=== PATIENT | female | born 1970 | race Caucasian/White ===

== ENCOUNTER 2016-04-23 21:01 | Inpatient (IN) | payer OTHER ==
--- NOTE | ~2016-04-23 | PN ---
Unit #: [id number] #: [id number] Patient: IDALIA ORR [id number] [facility] [address] [place] [address] [id number] MR#: [id number] NAME: IDALIA ORR ROOM: P110 Age: 45 Sex: F Admission Date: 04/23/2016 : 1970 Attending Physician: Jasson Mccormick M.D. Admitting Physician: Jasson Mccormick M.D. Primary Care Physician: Primary Care Physician Mee GALARZA PROGRESS NOTES DATE 04/25/2016 DISCUSSION The patient requests "Vistaril for my anxiety" when seen today. She is requesting a family session with her . It is worth noting that the patient is quite groggy with her recently prescribed medications at previous doses leading again to suspicions that they may have been diverted outside the hospital. I was unsuccessful in completing the patient's KHOA report earlier today, but we will attempt once again to do so later on. Dictated by... Jasson Mccormick M.D. CB/robi TD: 04/25/2016 14:54 JOB #: [id number] GEOVANNI MASTERSON NOTES X Jasson Mccormick MD PROGRESS NOTE
--- NOTE | ~2016-04-23 | HP ---
Unit #: [id number] #: [id number] Patient: STEPHY ORR [id number] [place] [address] [id number] MR#: [id number] NAME: STEPHY ORR ROOM: P110 Age: 45 Sex: F Admission Date: 04/23/2016 : 1970 Attending Physician: Jasson Mccormick M.D. Admitting Physician: Jasson Mccormick M.D. Primary Care Physician: Primary Care Physician No HISTORY AND PHYSICAL HISTORY OF PRESENT ILLNESS Stephy is a 45 year old, admitted to [address] [place] [address] with depression and verbalizing wanting to hurt herself. She has had numerous admissions to this facility for the same. PAST MEDICAL HISTORY 1. Chronic obstructive pulmonary disease. 2. Crohn's. 3. Degenerative disc disease. a. Chronic pain. 4. High blood pressure. 5. Seizure disorder. 6. Hyperlipidemia. PAST SURGICAL HISTORY 1. Uterine ablation. 2. Appendectomy. 3. section x1. 4. Partial colectomy with colostomy, 01/2016. ALLERGIES No known drug allergies. SOCIAL HISTORY He smokes two packs per day, denies alcohol. She has a history of polysubstance abuse to include pain pills and benzodiazepines. FAMILY HISTORY Medically noncontributory. REVIEW OF SYSTEMS She does not answer any questions appropriately. She is sitting in a chair in the day room, slumped over, slurred speech, oriented x0. CURRENT MEDICATIONS 1. Buprenorphine 8 mg sublingually daily 2. Neurontin 800 mg t.i.d. 3. Ritalin 20 mg t.i.d. 4. Alprazolam 2 mg q.i.d. 5. Multivitamin 1 daily 6. Nicotine patch 14 mg daily 7. Proventil inhaler p.r.n. 8. Milk of magnesia p.r.n. Unit #: [id number] #: [id number] Patient: STEPHY ORR 9. Maalox p.r.n. 10. Tylenol p.r.n. 11. Zyprexa 20 mg q.h.s. 12. Lipitor 10 mg q.h.s. 13. Keppra 500 mg daily 14. Detox protocol PHYSICAL EXAMINATION GENERAL: Alert, thin, lethargic, oriented x0. VITAL SIGNS: Blood pressure 128/7, heart rate 70, respirations 16, and temperature 98.6. WEIGHT: 112 pounds. HEIGHT: 5 feet 1 inch. SKIN: Unable to assess. HEENT: Unable to assess. NECK: Unable to assess. HEART: Regular rate and rhythm. LUNGS: Clear. ABDOMEN: Soft. Colostomy bag noted. : Unable to assess. EXTREMITIES: Moves all extremities without focal deficits. Gait not observed. NEUROLOGICAL: Unable to assess. IMPRESSION Psychiatric admission. RECOMMENDATIONS Psychiatric, per psychiatrist. MEDICAL I see no contraindications to participating in facility's activities. MEDICAL PROGNOSIS Good. MEDICAL CONDITION Stable. Dictated by... Cathy Baca P.A.-C. for Mateo King/norris TD: 04/25/2016 05:19 JOB #: [id number] Unit #: [id number] #: [id number] Patient: STEPHY ORR HISTORY AND PHYSICAL X Cathy Baca HISTORY AND PHYSICAL
--- NOTE | ~2016-04-23 | PN ---
Unit #: [id number] #: [id number] Patient: IDALIA ORR [id number] [facility] [address] [place] [address] [id number] I MR#: [id number] NAME: IDALIA ORR ROOM: P110 Age: 45 Sex: F Admission Date: 04/23/2016 : 1970 Attending Physician: Jasson Mccormick M.D. Admitting Physician: Jasson Mccormick M.D. Primary Care Physician: Primary Care Physician Mee GALARZA PROGRESS NOTES DATE 04/26/2016 DISCUSSION The patient seems a bit brighter today. She is active within the therapeutic milieu and does not report any suicidal ideation. She asked to remain in the hospital until May 01 "when they will turn the heat and water back on in my house." I have explained to the patient that this is an unrealistic expectation of inpatient care and I have told her to expect a.m. discharge. Dictated by... Jasson Mccormick M.D. CB/natasha TD: 04/26/2016 16:04 JOB #: [id number] GEOVANNI PROGRESS NOTES X Jasson Mccormick MD PROGRESS NOTE
--- NOTE | ~2016-04-23 | PA ---
Unit #: [id number] #: [id number] Patient: IDALIA ORR [id number] [place] [address] [id number] I MR#: [id number] NAME: IDALIA ORR ROOM: P110 Age: 45 Sex: F Admission Date: 04/23/2016 : 1970 Date of Assessment: 04/24/2016 Attending Physician: Jasson Mccormick M.D. Admitting Physician: Jasson Mccormick M.D. Primary Care Physician: Primary Care Physician No PSYCHIATRIC ASSESSMENT IDENTIFYING INFORMATION The patient is a 45-year-old white female admitted to the [address] [place] [address] after presenting to this facility voicing positive suicidal ideation. CHIEF COMPLAINT None given INFORMANT Patient, alize. HISTORY OF PRESENT ILLNESS The patient is a 45-year-old white female well known to this physician for multiple previous admissions to this facility. She has not been admitted in some time last having left this facility in December of last year. The patient reports recurrence of suicidal ideation and depressed mood. She is currently followed by a local physician who has prescribed high doses of Ritalin, Xanax and Subutex for her in a manner which is typical for this physician. The patient reports that she has been increasingly depressed related to having recently having undergone colostomy secondary to increase of her Crohn disease. She reports that she spent two months in the hospital after her surgery. She states that she is currently living with her and that her children are in detention. This is a source of great distress to her. For more complete history of present illness please refer to previous dictated notes. PAST PSYCHIATRIC HISTORY Reviewed, no changes. PAST MEDICAL HISTORY Significant for the aforementioned colostomy. MEDICATIONS 1. Subutex 2. Xanax 3. Ritalin 4. Neurontin 5. Zyprexa 6. Phenergan 7. Ventolin 8. Lipitor 9. Keppra ALLERGIES Unit #: [id number] #: [id number] Patient: IDALIA ORR Pneumococcal vaccine, milk, fish. FAMILY HISTORY Noncontributory. SOCIAL HISTORY The patient is currently living with her in an apartment. She reports that all of her children have been incarcerated. She reports no abuse of psychoactive substances. MENTAL STATUS EXAM At this time reveals the patient to be a disheveled white female appearing significantly older than her stated age of 45 years. She is in no apparent physical distress at the time of examination. She is awake and alert in all spheres. Her mood is dysphoric. Her affect blunted. Speech is generally relevant and coherent. There are no gross deficits to memory or cognition noted. Intelligence is judged to be in the low average range based on fund of knowledge. The patient is generally cooperative throughout the interview. She is currently endorsing a positive suicidal ideation. She denies homicidal ideation. She denies any psychotic symptoms. Her judgement and insight appear to be reasonably intact. ASSETS AND LIABILITIES ASSETS: To be assessed. LIABILITIES: Lack of resources. DIAGNOSTIC IMPRESSION 1. Dysthymic disorder. 2. Borderline personality disorder. 3. Opioid use disorder. 4. Attention deficit-hyperactivity disorder by history. 5. Restless leg syndrome. 6. Crohn's disease. 7. Status post colostomy. PSYCHIATRIC PLAN/TREATMENT GOALS The patient will remain hospitalized for safety and stabilization. I will reluctantly continue Subutex, Xanax, Ritalin and Neurontin if they are in fact verified as having been prescribed but will play no part in continuing these medications once the patient is discharged. In the meantime we will consider initiation of antidepressant medication given the patient's complaints of depressed mood however generally her symptoms seem to be more behavioral and situational in nature. ESTIMATED LENGTH OF STAY Five to seven days. Dictated by... Jasson Mccormick M.D. KIA/reynold TD: 04/25/2016 00:51 JOB #: [id number] Unit #: [id number] #: [id number] Patient: IDALIA ORR MARIUSZ PSYCHIATRIC ASSESSMENT X Jasson Mccormick MD PSYCHIATRIC ASSESSMENT
--- NOTE | ~2016-04-23 | DS ---
Unit #: [id number] #: [id number] Patient: IDALIA ORR [id number] [facility] [address] [place] [address] [id number] MR#: [id number] NAME: IDALIA ORR ROOM: P110 Age: 45 Sex: F Admission Date: 04/23/2016 : 1970 Discharge Date: 04/27/2016 Attending Physician: Jasson Mccormick M.D. Primary Care Physician: Primary Care Physician No DISCHARGE SUMMARY REASON FOR ADMISSION The patient is a 45-year-old white female, admitted after she had presented to this facility voicing positive suicidal ideation. HOSPITAL COURSE The patient was admitted to the [address] [place] [address] unit and placed on suicide precautions. Reluctantly, the patient was continued on Subutex, Xanax, Ritalin, and Neurontin as prescribed by her outpatient provider. The patient's stay in the hospital was otherwise an uneventful one. She requested discharge on 04/27/2016 and at that time, it was so ordered. It is worth noting that when being given Xanax at a dose of 2 mg q.i.d. The patient was grossly sedated leading this physician once again to believe that the patient or the patient's family probably diverting prescribed medications. FINAL DIAGNOSES Schizoaffective disorder by history; opioid use disorder; Crohn disease, status post colostomy. DISPOSITION This physician will provide no prescriptions whatsoever to the patient given concerns about an pentecostalism medication regimen. Whatever the case, she will continue on Keppra 500 mg b.i.d. for seizure disorder, Lipitor 10 mg at bedtime for dyslipidemia, Proventil HFA 2 puffs q.4 hours for COPD, olanzapine 20 mg at bedtime for psychosis, Xanax 2 mg q.i.d. for mood stabilization, Ritalin 20 mg t.i.d. for reason unknown, Neurontin 800 mg t.i.d. reason unknown, and Suboxone 16 mg once daily for opioid dependence. DISCHARGE INSTRUCTIONS No dietary or physical restrictions were placed upon the patient at the time of discharge. She will follow under the care of her previous provider Dr. John Mccoy. Her prognosis remains guarded and again this physician expresses great concerns regarding this patient being on these prescribed medications, briefly given the patient's family's history of diverting her prescribed controlled substances. Dictated by... Jasson Mccormick M.D. CB/nataliia TD: 04/28/2016 04:48 Unit #: [id number] #: [id number] Patient: IDALIA ORR JOB #: [id number] DISCHARGE SUMMARY X Jasson Mccormick MD X DISCHARGE SUMMARY
[~2016-04-23 21:01] MED LIST: ALPRAZOLAM PO; AMBIEN10 MG PO; ATIVAN PO; BACTRIM DS TABL1 TA1 PO; BENTYL20 MG PO; CATAPRES0.1 MG PO; CIPRO PO; CLINDAMYCIN HC300 MG PO; DEPAKOTE; DEPAKOTE ER250 MG DOB; DEPAKOTE PO; DICLOFENAC PO; DIFLUCAN PO; DIVALPROEX SOD500 MG PO; DOXEPIN HCL150 MG PO; DOXEPIN PO; GEODAN; HYDROCHLOROTHIA25 MG PO; IBUPROFEN800 MG PO; KCL PO; KEPPRA1000 MG PO; KEPPRA500 M1; KEPPRA500 M2 PO; KLONOPIN; KLONOPIN1 MG PO; LIDOCAINE VISCOU1 ML PO; LOMOTIL TABLET1 TAB PO; LORTAB 5/500 TA1 TA1 PO; LORTAB 5/500 TA1 TA2 PO; LORTAB 7.5-5001 TAB PO; MOTRIN600 M2 PO; NEURONTIN; NEURONTIN PO; NEURONTIN600 MG DOB; NEURONTIN600 MG PO; NEURONTIN800 MG PO; NEXIUM PO; PEN-VEE K PO; PHENERGAN PO; PHENERGAN SUPP25 MG PR; PHENERGAN25 MG PO; PREDNISONE; PRILOSEC20 MG PO; PROTONIX PO; REMERON; RISPERDAL0.5 M2 PO; RITALIN PO; SEROQUEL; SEROQUEL PO; SEROQUEL50 M1 PO; TRAMADOL HCL50 M2 PO; TRAZODONE HCL100 MG PO; ULTRAM PO; VICODIN PO; VIMPAT100 MG PO; VOLTAREN75 MG PO; XANAX1 MG PO; XANAX2 MG PO; ZOFRAN PO; ZYPREXA
[2016-04-24 09:29] LABS: BASOPHIL# 0.1 X10e3 (0-0.3); BASOPHIL% 0.8 % (0-2.5); EOSINOPHIL# 0.5 X10e3 (0-0.7); EOSINOPHIL% 5.8 % (0.0-7.0); HEMATOCRIT 35.3 % (35.0-45.0); HEMOGLOBIN 11.6 gm/dL (12.0-16.0); LYMPHOCYTE# 2.6 X10e3 (1.0-3.5); MEAN CELL VOLUME 89.3 FL (83-96); MEAN CORPUSCULAR HEMOGLOBIN 29.2 PG (28-34); MEAN CORPUSCULAR HGB CONC 32.7 g/dL (30-36); MEAN PLATELET VOLUME 7.5 FL (6.5-11.5); MONOCYTE# 0.9 X10e3 (0-1.0); MONOCYTE% 11.4 % (3.0-12.0); NEUTROPHIL# 3.9 X10e3 (1.5-7.1); PLATELET COUNT 524 X10e3 (140-420); RED BLOOD COUNT 3.96 X10e (3.90-5.30); RED CELL DISTRIBUTION WIDTH 13.8 % (11.0-15.5); WHITE BLOOD COUNT 7.9 X10e3 (4.0-10.5)
[2016-04-24 09:39] LABS: DIFF IND NO
[2016-04-24 09:55] LABS: THYROID STIMULATING HORMONE 0.31 uIU/ml (0.34-5.60)
[2016-04-24 10:02] LABS: FREE THYROXIN (T4) 0.74 ng/dL (0.58-1.64)
[2016-04-24 10:05] LABS: ALBUMIN SERUM 3.9 g/dL (3.5-5.0); ALKALINE PHOSPHATASE 77 U/L (32-92); ALT (SGPT) 257 U/L (10-40); AST (SGOT) 352 U/L (10-42); BILIRUBIN,TOTAL 0.5 mg/dL (0.2-2.0); BLOOD UREA NITROGEN 5 mg/dL (9-23); BUN/CREATININE RATIO 7.14; CALCIUM SERUM 9.9 mg/dL (8.4-10.2); CARBON DIOXIDE 24 mmol/L (22-31); CHLORIDE 103 mmol/L (100-111); CREATININE SERUM 0.7 mg/dL (0.6-1.4); GLOM FILT RATE Estimated ABOVE60 mL/min (>60); GLUCOSE FASTING 89 mg/dL (70-110); POTASSIUM 4.9 mmol/L (3.5-5.1); PROTEIN TOTAL SERUM 7.2 g/dL (6.0-8.3); SODIUM 138 mmol/L (135-145)
== END 2016-04-27 18:28 | disposition home or self-care (01) | DRG 881 ==
LOC: P1S 21:01
PROVIDERS: Specialist
DX: F34.1 Dysthymic disorder (principal); F11.20 Opioid dependence, uncomplicated; K50.90 Crohn's disease, unspecified, without complications; G40.909 Epilepsy, unspecified, not intractable, without status epilepticus; F25.0 Schizoaffective disorder, bipolar type; I10 Essential (primary) hypertension; F60.3 Borderline personality disorder; F90.9 Attention-deficit hyperactivity disorder, unspecified type; G25.81 Restless legs syndrome; Z93.3 Colostomy status; J44.9 Chronic obstructive pulmonary disease, unspecified; E78.5 Hyperlipidemia, unspecified; F17.200 Nicotine dependence, unspecified, uncomplicated
CPT/HCPCS: 80053; 84439; 84443; 85025; 86592

== ENCOUNTER 2016-05-10 16:04 | Inpatient (IN) | payer OTHER ==
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
--- NOTE | ~2016-05-10 | PN ---
Unit #: [id number] #: [id number] Patient: IDALIA ORR [id number] [facility] [address] [place] [address] [id number] MR#: [id number] NAME: IDALIA ORR ROOM: 12 Age: 45 Sex: F Admission Date: 05/10/2016 : 1970 Attending Physician: Jasson Mccormick M.D. Admitting Physician: Jasson Mcocrmick M.D. Primary Care Physician: Primary Care Physician Mee MASTERSON NOTES DATE 05/12/2016 DISCUSSION The patient reports no suicidal or homicidal ideation when seen today. Interestingly, she exhibits absolutely no signs or symptoms of withdrawal from benzodiazepines or opiates but demands that these medications be re-initiated. I have gently confronted her with a, the fact that she is having no withdrawal symptoms and b, the fact that her drug screen was positive only for benzodiazepines and have informed her that I do not plan to re-initiate her Subutex, Ritalin or Xanax. The patient at this point demanded discharge from the hospital. I have told the patient today that if she sustains progress she may be discharged as early as tomorrow. Dictated by... Jasson Mccormick M.D. CB/natasha TD: 05/12/2016 15:26 JOB #: [id number] GEOVANNI MASTERSON NOTES X Jasson Mccormick MD PROGRESS NOTE
--- NOTE | ~2016-05-10 | HP ---
Unit #: [id number] #: [id number] Patient: IDALIA ORR [id number] [facility] [address] [place] [address] [id number] MR#: [id number] NAME: IDALIA ORR ROOM: 12 Age: 45 Sex: F Admission Date: 05/10/2016 : 1970 Attending Physician: Jasson Mccormick M.D. Admitting Physician: Jasson Mccormick M.D. Primary Care Physician: Primary Care Physician No HISTORY AND PHYSICAL HISTORY OF PRESENT ILLNESS The patient is a 45 year old admitted to [address] [place] [address] with depression verbalizing wanting to hurt herself. She has had numerous admissions to this facility for the same. The patient was seen and H and P dated 04/24/2016 was reviewed. This is current. No changes. Please see H and P dated 04/24/2016. Dictated by... Cathy Baca P.A.-C. for Mateo King/robi TD: 05/12/2016 11:41 JOB #: [id number] HISTORY AND PHYSICAL X Cathy Baca HISTORY AND PHYSICAL
--- NOTE | ~2016-05-10 | DS ---
Unit #: [id number] #: [id number] Patient: IDALIA ORR [id number] [facility] [address] [place] [address] [id number] MR#: [id number] NAME: IDALIA ORR ROOM: [facility] Age: 45 Sex: F Admission Date: 05/10/2016 : 1970 Discharge Date: 05/13/2016 Attending Physician: Jasson Mccormick M.D. Primary Care Physician: Primary Care Physician No DISCHARGE SUMMARY REASON FOR ADMISSION The patient is a 45-year-old white female, admitted to the [address] [place] [address] unit after she had claimed to be suicidal. HOSPITAL COURSE The patient was admitted to the [address] [place] [address] and placed on suicide precautions as the patient had been informed in the emergency room her previously prescribed medications including Xanax, Ritalin, and Suboxone were all discontinued. The patient exhibited absolutely no signs or symptoms of withdrawal from these medications during her stay in the hospital, certainly indicating that these medications are probably being diverted if in fact they are being prescribed for her. Whatever the case, the patient denied suicidal ideation and requested discharge on 05/12/2016, stating that she needed to "help her move." She was observed for another 24 hours, during which time she exhibited absolutely no signs or symptoms of withdrawal from opioids or benzodiazepines. On 05/13/2016 as per her request, discharge was ordered. FINAL DIAGNOSES Schizoaffective disorder, seizure disorder, Crohn disease, chronic obstructive pulmonary disease. DISPOSITION ON DISCHARGE This physician will provide a prescription only for prednisone with tapering dose over the next 7-day period 10 mg for exacerbation of COPD. The patient will continue Keppra 500 mg b.i.d. for seizure disorder, Lipitor 10 mg at bedtime for dyslipidemia, Proventil HFA 2 puffs q.4 hours p.r.n. shortness of air, olanzapine 20 mg at bedtime for mood stabilization, and Deltasone as noted previously, Tessalon Perles 200 mg q.8 hours p.r.n. cough. DISCHARGE INSTRUCTIONS No dietary or physical restrictions were placed upon the patient at the time of discharge. FOLLOWUP Followup will take place through the auspices of community mental health resources. PROGNOSIS The patient's prognosis remains somewhat guarded given her lack of resources and chaotic family situation. Unit #: [id number] #: [id number] Patient: IDALIA ROR Dictated by... Jasson Mccormick M.D. CB/nataliia TD: 05/14/2016 02:16 JOB #: [id number] DISCHARGE SUMMARY X Jasson Mccormick MD X DISCHARGE SUMMARY
== END 2016-05-13 14:00 | disposition home or self-care (01) | DRG 885 ==
LOC: P1S 16:04
PROC: HZ2ZZZZ Detoxification Services for Substance Abuse Treatment (ICD-10-PCS; principal; 2016-05-10)
DX: F25.9 Schizoaffective disorder, unspecified (principal); K50.90 Crohn's disease, unspecified, without complications; F60.3 Borderline personality disorder; F11.10 Opioid abuse, uncomplicated; F13.10 Sedative, hypnotic or anxiolytic abuse, uncomplicated; G40.909 Epilepsy, unspecified, not intractable, without status epilepticus; J44.9 Chronic obstructive pulmonary disease, unspecified

== ENCOUNTER 2016-07-01 04:17 | Emergency (ER) | payer OTHER | END 2016-07-01 04:21 | disposition home or self-care (01) | LOC: SED 04:17 | DX: S39.011A Strain of muscle, fascia and tendon of abdomen, initial encounter (principal); J44.9 Chronic obstructive pulmonary disease, unspecified; F31.9 Bipolar disorder, unspecified; Z86.19 Personal history of other infectious and parasitic diseases; F17.200 Nicotine dependence, unspecified, uncomplicated; X58.XXXA Exposure to other specified factors, initial encounter | CPT/HCPCS: 99283 ==

== ENCOUNTER 2016-07-05 22:00 | Inpatient (IN) | payer OTHER ==
--- NOTE | ~2016-07-05 | PN ---
Unit #: [id number] #: [id number] Patient: IDALIA ORR [id number] [facility] [address] [place] [address] [id number] MR#: [id number] NAME: IDALIA ORR ROOM: P205 Age: 45 Sex: F Admission Date: 07/06/2016 : 1970 Attending Physician: Jasson Mccormick M.D. Admitting Physician: Jasson Mccormick M.D. Primary Care Physician: Primary Care Physician Mee GALARZA PROGRESS NOTES DATE 07/07/2016 DISCUSSION The patient is abed resting comfortably. Staff reports no management issues but reports that the patient has remained seclusive to room throughout much of her stay in the hospital. Dictated by... Jasson Mccormick M.D. CB/natasha TD: 07/07/2016 16:31 JOB #: [id number] GEOVANNI PROGRESS NOTES Page 1 of 1 X Jasson Mccormick MD X PROGRESS NOTE
--- NOTE | ~2016-07-05 | HP ---
Unit #: [id number] #: [id number] Patient: STEPHY ORR [id number] [place] [address] [id number] I MR#: [id number] NAME: STEPHY ORR ROOM: P205 Age: 45 Sex: F Admission Date: 07/06/2016 : 1970 Attending Physician: Jasson Mccormick M.D. Admitting Physician: Jasson Mccormick M.D. Primary Care Physician: Primary Care Physician No HISTORY AND PHYSICAL HISTORY OF PRESENT ILLNESS Stephy is a 45-year-old female admitted on 07/06/[address] [place] [address] for depression and suicidal ideation. PAST MEDICAL HISTORY History of Crohn's disease, COPD, degenerative disk disease, hypertension, hyperlipidemia, recurrent colostomy. PAST SURGICAL HISTORY Colostomy, section x4, appendectomy, and uterine ablation. SOCIAL HISTORY Smokes 2 packs of cigarettes daily. Denies alcohol use. FAMILY HISTORY History of substance abuse, specifically opiates and benzos. She is currently homeless and on disability. FAMILY HISTORY Noncontributory. REVIEW OF SYSTEMS CONSTITUTIONAL: No fever or chills. HEENT: Denies any sore throat, ear pain or runny nose. CARDIOVASCULAR: Denies chest pain, irregular heart rhythm or palpitations. CHEST: Denies shortness of breath or cough. No hemoptysis. GASTROINTESTINAL: Denies nausea, vomiting, diarrhea or chronic constipation. ENDOCRINE: Denies history of increased thirst or urination. No recent significant weight loss or gain. GENITOURINARY: Denies dysuria, frequency, or hematuria. SKIN: Denies any rashes. HEMATOLOGIC: Denies history of increased bleeding or bruising. MUSCULOSKELETAL: Denies any hot, swollen joints. No generalized muscle pain. NEUROLOGIC: Denies problems with vision or speech. No frequent, severe headaches. No numbness, tingling or weakness in any extremities. Denies loss of bladder or bowel control. CURRENT MEDICATIONS Please see extensive medication reconciliation form in chart. ALLERGIES Unit #: [id number] #: [id number] Patient: STEPHY ORR To iodine and pneumococcal vaccine. PHYSICAL EXAMINATION GENERAL: Alert, oriented, no acute distress. VITAL SIGNS: Blood pressure 101/68, heart rate 89, respirations 17, and temperature 98.9. HEIGHT: 5 feet 1. WEIGHT: 108 pounds. SKIN: Warm, dry. No rashes or lesions, track orozco, cuts, etc. HEENT: Normocephalic. TMs not viewed. Oronasal passages clear. Conjunctivae clear. PERRLA. EOM is intact. NECK: No lymphadenopathy or thyromegaly. HEART: Regular rate and rhythm. No murmur, gallop, or rub. LUNGS: Clear to auscultation bilaterally. ABDOMEN: Soft, nontender without palpable masses or hepatosplenomegaly. : Not assessed. EXTREMITIES: No evidence of cyanosis, clubbing, or edema. Moves all extremities independently without obvious deficit. NEUROLOGICAL: Grossly within normal limits. Cranial Nerves: II: Visual barbosa are intact. III, IV AND : Extraocular movements are intact. Pupils are equal, round and reactive to light. V: Facial sensation is grossly normal. VII: Facial movements and expression are normal. VIII: Auditory acuity grossly intact. IX, X: Uvula is midline. Phonation is normal. XI: Patient shrugs shoulders and turns head normally. XII: Tongue protrudes in the midline. Sensory and Motor Function: Sensory and motor sensation is grossly normal. Motor: moves all extremities well. Coordination: Gait is normal. Deep Tendon Reflexes: Intact. IMPRESSION 1. Psychiatric admission. 2. Chronic obstructive pulmonary disease. 3. Crohn's disease. 4. Degenerative disk disease. 5. Hyperlipidemia. 6. Hypertension. 7. Seizure disorder. RECOMMENDATIONS PSYCHIATRIC: Per psychiatrist. MEDICAL: No contraindication to participate in this facility's activities. MEDICAL PROGNOSIS Good. MEDICAL CONDITION Stable. Dictated by... Nevin Akers TD: 07/07/2016 08:05 Unit #: [id number] #: [id number] Patient: STEPHY ORR JOB #: [id number] HISTORY AND PHYSICAL Page 1 of 1 X URSZULA SCHREIBER APRN X HISTORY AND PHYSICAL
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
[2016-07-07 13:46] LABS: BASOPHIL% 0.5 % (0-2.5); EOSINOPHIL% 0.3 % (0.0-7.0); HEMATOCRIT 35.6 % (35.0-45.0); HEMOGLOBIN 11.6 gm/dL (12.0-16.0); LYMPHOCYTE# 1.2 X10e3 (1.0-3.5); LYMPHOCYTE% 14.4 % (17.0-45.0); MEAN CELL VOLUME 88.2 FL (83-96); MEAN CORPUSCULAR HEMOGLOBIN 28.7 PG (28-34); MEAN CORPUSCULAR HGB CONC 32.6 g/dL (30-36); MEAN PLATELET VOLUME 8.7 FL (6.5-11.5); MONOCYTE# 0.3 X10e3 (0-1.0); MONOCYTE% 3.8 % (3.0-12.0); NEUTROPHIL# 6.7 X10e3 (1.5-7.1); PLATELET COUNT 311 X10e3 (140-420); RED BLOOD COUNT 4.04 X10e (3.90-5.30); RED CELL DISTRIBUTION WIDTH 13.6 % (11.0-15.5); WHITE BLOOD COUNT 8.3 X10e3 (4.0-10.5)
[2016-07-07 13:47] LABS: DIFF IND NO
[2016-07-07 14:15] LABS: ALBUMIN SERUM 3.7 g/dL (3.5-5.0); BILIRUBIN,TOTAL 0.7 mg/dL (0.2-2.0); BUN/CREATININE RATIO 18.57; CALCIUM SERUM 9.1 mg/dL (8.4-10.2); CREATININE SERUM 0.7 mg/dL (0.6-1.4); GLOM FILT RATE Estimated 103.2 mL/min (>60); POTASSIUM 3.7 mmol/L (3.5-5.1); PROTEIN TOTAL SERUM 6.3 g/dL (6.0-8.3)
== END 2016-07-08 15:36 | disposition home or self-care (01) | DRG 885 ==
LOC: P2S 07-06 00:53
PROVIDERS: Specialist
DX: F25.9 Schizoaffective disorder, unspecified (principal); K50.90 Crohn's disease, unspecified, without complications; R45.851 Suicidal ideations; Z93.3 Colostomy status; G40.909 Epilepsy, unspecified, not intractable, without status epilepticus; J44.9 Chronic obstructive pulmonary disease, unspecified; I10 Essential (primary) hypertension; E78.5 Hyperlipidemia, unspecified; F17.210 Nicotine dependence, cigarettes, uncomplicated; Z88.7 Allergy status to serum and vaccine
CPT/HCPCS: 80053; 85025

== ENCOUNTER 2016-09-13 18:11 | Inpatient (IN) | payer OTHER ==
[~2016-09-13] VITALS: Ht 152.4 cm; Wt 56.7 kg
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
--- NOTE | ~2016-09-13 | PN ---
Unit #: [id number] #: [id number] Patient: IDALIA ORR [id number] [facility] [address] [place] [address] [id number] I MR#: [id number] NAME: IDALIA ORR ROOM: [facility] Age: 45 Sex: F Admission Date: 09/13/2016 : 1970 Attending Physician: Jasson Mccormick M.D. Admitting Physician: Jasson Mccormick M.D. Primary Care Physician: Primary Care Physician Mee GALARZA PROGRESS NOTES DATE 09/16/2016 DISCUSSION The patient continues to exhibit absolutely no signs or symptoms of benzodiazepine or opioid withdrawal. She continues to deny suicidal ideation and is hoping to coordinate her discharge with that of her who is currently on the 1 [facility] unit. Dictated by... Jasson Mccormick M.D. CB/reynold TD: 09/17/2016 00:26 JOB #: [id number] [facility] PROGRESS NOTES Page 1 of X Jasson Mccormick MD PROGRESS NOTE
--- NOTE | ~2016-09-13 | A ---
[facility] Nutrition Therapy DATE: 09/14/16 Patient: IDALIA ORR Physician: MILDRED Address: NO PERMANENT ADDRESS Room/Bed: [address] [facility], [facility], Zip: [place] [address] Admit Date: 09/13/16 Date of : [birth year] Height: 5 0 Weight: 124 56.699 NUTRITIONAL ASSESSMENT: REASON: 2 points malnutrition risk score re: unintentional weight loss + chewing/swallowing difficulties Admitting dx: 45 y/o female admitted with depression and SI PMH: Crohn's disease -> colon cancer (dx date?), COPD, HTN, HLD, DDD, seizures, recurrent colostomy, smoker, substance abuse (obtained from 07/06/16 H&P) *No updated H&P available at this time Anthropometrics: Ht: 60", Wt: 125 lbs, BMI: 24 (normal) ?weight accuracy, pt weighed 108 lbs at last admission on 07/06/16 Past weight range: 108-145 lbs Labs: None available Meds: Keppra, MVI, thiamine, folic acid, milk of mg, mag-al, loperamide, zofran prn, pshych meds noted I/O & Bowel function: No colostomy currently in place, has hx Crohn's and now has colon cancer Assessment: Chart reviewed, events noted. See admitting dx and PMH as stated above. Patient recently diagnosed with colon cancer and states she wants to , unable to cope with pt's diagnosis. She is currently homeless and on disability. She is on a regular diet. Question current weight accuracy (see above), she reports poor appetite with 20 lb weight loss in "months" upon admission, however past weights do not reflect this loss. No evidence of chewing/swallowing difficulty. Pt just admitted yesterday- will follow to determine adequacy of PO intake and will ask MD to order Ensure shakes BID. Dx: Unintentional weight loss r/t depression, cancer AEB pt reports 20 lb weight los in months, 2 points malnutrition risk score. Intervention: Ensure BID, snacks prn, psych tx Monitoring, Evaluation and Goals: 1. PO intake > 50% of meals/supps. 2. Maintain current weight status. Monitor: Per protocol, criteria to determine if above goals met [facility] Nutrition Therapy DATE: 09/14/16 Patient: IDALIA VEE KIRBY Physician: MILDRED Address: NO PERMANENT ADDRESS Room/Bed: P263-[address] [facility], [facility], Zip: [place] [address] Admit Date: 09/13/16 Date of : [birth year] Height: 5 0 Weight: 124 56.699 Recommendations: 1. Please obtain accurate weight. 2. Continue regular diet + prn snacks. RD will prompt MD to order Ensure BID and will notify [facility] staff to send to provide extra kcals/protein due to poor appetite and reported weight loss. 3. Continue vitamins. RD will follow Mild-moderate nutrition risk Respectfully, Deanna Lutz RD, LD [facility] cc: client file
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
--- NOTE | ~2016-09-13 | HP ---
Unit #: [id number] #: [id number] Patient: STEPHY ORR [id number] [place] [address] [id number] MR#: [id number] NAME: STEPHY ORR ROOM: P263 Age: 45 Sex: F Admission Date: 09/13/2016 : 1970 Attending Physician: Jasson Mccormick M.D. Admitting Physician: Jasson Mccormick M.D. Primary Care Physician: Primary Care Physician No HISTORY AND PHYSICAL HISTORY OF PRESENT ILLNESS Stephy is a 45-year-old female admitted on 09/13/2016 to [facility] for depression and suicidal ideation. PAST MEDICAL HISTORY 1. Hypertension. 2. Hyperlipidemia. 3. Crohn's disease. 4. COPD. 5. Degenerative disc disease. 6. Multiple colostomies. 7. Recently she also had a biopsy that was concerning for colon cancer. Those results are pending. 8. Seizure disorder. PAST SURGICAL HISTORY 1. Multiple colostomies. Recently she had a reversal on 07/25. 2. Colon biopsy. 3. Uterine ablation. 4. section x4. 5. Appendectomy. ALLERGIES Iodine and pneumovax. SOCIAL HISTORY Smokes 2 packs of cigarettes daily. Denies alcohol or illegal drug use. She is currently and homeless. FAMILY HISTORY Noncontributory. REVIEW OF SYSTEMS CONSTITUTIONAL: No fever or chills. HEENT: Denies any sore throat, ear pain or runny nose. CARDIOVASCULAR: Denies chest pain, irregular heart rhythm or palpitations. CHEST: Denies shortness of breath or cough. No hemoptysis. GASTROINTESTINAL: Denies nausea, vomiting, diarrhea or chronic constipation. ENDOCRINE: Denies history of increased thirst or urination. No recent significant weight loss or gain. GENITOURINARY: Denies dysuria, frequency, or hematuria. SKIN: Denies any rashes. Unit #: [id number] #: [id number] Patient: STEPHY ORR HEMATOLOGIC: Denies history of increased bleeding or bruising. MUSCULOSKELETAL: Denies any hot, swollen joints. No generalized muscle pain. NEUROLOGIC: Denies problems with vision or speech. No frequent, severe headaches. No numbness, tingling or weakness in any extremities. Denies loss of bladder or bowel control. CURRENT MEDICATIONS 1. Amoxicillin. 2. Neurontin. 3. Keppra. PHYSICAL EXAMINATION GENERAL: Alert, oriented, in no acute distress. VITAL SIGNS: Blood pressure 96.60, heart rate 82, temperature 97.8. HEIGHT: 5 feet 0. WEIGHT: 110 pounds. SKIN: Warm and dry without rash or lesion. HEENT: Normocephalic. TMs not viewed. Oral and nasal passages clear. Conjunctivae clear. PERRLA. EOMs intact. NECK: Supple without lymphadenopathy or thyromegaly. HEART: Regular rate and rhythm without murmur. LUNGS: Clear. ABDOMEN: Soft, nontender, without masses or hepatosplenomegaly. : Not done. EXTREMITIES: No evidence of cyanosis, clubbing or edema. Moves all without focal deficit. NEUROLOGICAL: Grossly within normal limits. Cranial Nerves: II: Visual barbosa are intact. III, IV AND : Extraocular movements are intact. Pupils are equal, round and reactive to light. V: Facial sensation is grossly normal. VII: Facial movements and expression are normal. VIII: Auditory acuity grossly intact. IX, X: Uvula is midline. Phonation is normal. XI: Patient shrugs shoulders and turns head normally. XII: Tongue protrudes in the midline. Sensory and Motor Function: Sensory and motor sensation is grossly normal. Motor: moves all extremities well. Coordination: Gait is normal. Deep Tendon Reflexes: Intact. IMPRESSION Psychiatric admission. RECOMMENDATIONS PSYCHIATRIC: Per psychiatrist. MEDICAL: No contraindication to participate in facility's activities. MEDICAL PROGNOSIS Good. MEDICAL CONDITION Stable. Dictated by... Unit #: [id number] #: [id number] Patient: KIRBYSHERWINSTEPHYNevin Huang/natasha TD: 09/14/2016 20:04 JOB #: [id number] HISTORY AND PHYSICAL Page 1 of 1 X URSZULA SCHREIBER APRN X HISTORY AND PHYSICAL
[2016-09-14 09:38] LABS: BASOPHIL% 0.5 % (0-2.5); EOSINOPHIL# 0.3 X10e3 (0-0.7); EOSINOPHIL% 3.8 % (0.0-7.0); LYMPHOCYTE# 3.3 X10e3 (1.0-3.5); LYMPHOCYTE% 36.5 % (17.0-45.0); MEAN CELL VOLUME 85.9 FL (83-96); MEAN CORPUSCULAR HEMOGLOBIN 27.8 PG (28-34); MEAN CORPUSCULAR HGB CONC 32.4 g/dL (30-36); MEAN PLATELET VOLUME 7.5 FL (6.5-11.5); MONOCYTE# 0.7 X10e3 (0-1.0); MONOCYTE% 7.9 % (3.0-12.0); NEUTROPHIL# 4.7 X10e3 (1.5-7.1); NEUTROPHIL% 51.3 % (40-75); PLATELET COUNT 860 X10e3 (140-420); RED BLOOD COUNT 3.96 X10e (3.90-5.30); RED CELL DISTRIBUTION WIDTH 15.9 % (11.0-15.5); WHITE BLOOD COUNT 9.2 X10e3 (4.0-10.5)
[2016-09-14 09:50] LABS: DIFF IND NO
[2016-09-14 10:39] LABS: ALBUMIN SERUM 3.3 g/dL (3.5-5.0); BILIRUBIN,TOTAL 0.2 mg/dL (0.2-2.0); CALCIUM SERUM 9.3 mg/dL (8.4-10.2); CREATININE SERUM 1.1 mg/dL (0.6-1.4); GLOM FILT RATE Estimated 59.8 mL/min (>60); PROTEIN TOTAL SERUM 6.5 g/dL (6.0-8.3)
[2016-09-14 10:46] LABS: POTASSIUM 5.5 mmol/L (3.5-5.1)
[2016-09-15 11:33] LABS: URINE APPEARANCE TURBID; URINE BILIRUBIN NEG (NEG); URINE BLOOD TRACE (NEG); URINE COLOR YELLOW; URINE GLUCOSE NEG (NEG); URINE KETONE NEG (NEG); URINE LEUKOCYTE ESTERASE NEG (NEG); URINE NITRATE NEG (NEG); URINE PROTEIN NEG (NEG); URINE SPECIFIC GRAVITY 1.016 (1.003-1.035); URINE UROBILINOGEN 0.2 MG/DL (NEG)
[2016-09-15 11:40] LABS: URINE BACTERIA AUWI NEG (NEGATIVE); URINE SQUAMOUS EPITHELIAL CELL FEW /[HPF]
[2016-09-15 11:53] LABS: URINE GRANULAR CAST 0-2 /[HPF]; URINE MUCUS PRESENT
[2016-09-15 11:59] LABS: AMPHETAMINE NEG (NEG); BARBITURATES NEG (NEG); BENZODIAZEPINES POS (NEG); COCAINE NEG (NEG); MARIJUANA NEG (NEG); OPIATES NEG (NEG); TRICYCLIC ANTIDEPRESSANTS NEG (NEG); U METHADONE NEG (NEG)
[2016-09-15 13:49] LABS: BUN/CREATININE RATIO 13.33; CALCIUM SERUM 10.1 mg/dL (8.4-10.2); CREATININE SERUM 0.9 mg/dL (0.6-1.4); GLOM FILT RATE Estimated 76.2 mL/min (>60)
[2016-09-15 13:58] LABS: POTASSIUM 5.6 mmol/L (3.5-5.1)
[2016-09-16 15:26] LABS: BUN/CREATININE RATIO 17.5; CREATININE SERUM 0.8 mg/dL (0.6-1.4); GLOM FILT RATE Estimated 87.9 mL/min (>60)
[2016-09-16 15:30] LABS: POTASSIUM 6.3 mmol/L (3.5-5.1)
== END 2016-09-17 13:45 | disposition home or self-care (01) | DRG 885 ==
LOC: P2L 19:48
PROVIDERS: Specialist
DX: F25.9 Schizoaffective disorder, unspecified (principal); F11.20 Opioid dependence, uncomplicated; R45.851 Suicidal ideations; K50.90 Crohn's disease, unspecified, without complications; G40.909 Epilepsy, unspecified, not intractable, without status epilepticus; I10 Essential (primary) hypertension; E78.5 Hyperlipidemia, unspecified; J44.9 Chronic obstructive pulmonary disease, unspecified; F17.210 Nicotine dependence, cigarettes, uncomplicated
CPT/HCPCS: 80048; 80053; 80307; 81003; 84703; 85025; 86592

== ENCOUNTER 2016-09-23 13:08 | Emergency (ER) | payer OTHER ==
[2016-09-23] MEDS ORDERED: NEURONTIN800 MG PO (13:25)
[2016-09-23] MEDS ORDERED: ALPRAZOLAM PO (13:25)
[2016-09-23] MEDS ORDERED: SUBOXONE 12 MG1 EACH (13:25)
== END 2016-09-23 14:10 | disposition home or self-care (01) ==
LOC: SED 13:08
DX: F41.9 Anxiety disorder, unspecified (principal); G24.9 Dystonia, unspecified; F31.9 Bipolar disorder, unspecified; Z90.710 Acquired absence of both cervix and uterus; Z90.49 Acquired absence of other specified parts of digestive tract; F17.210 Nicotine dependence, cigarettes, uncomplicated; Z88.7 Allergy status to serum and vaccine; Z91.013 Allergy to seafood; Z79.899 Other long term (current) drug therapy
CPT/HCPCS: 96372; 99283; J1200

== ENCOUNTER 2016-09-29 17:35 | Emergency (ER) | payer OTHER ==
--- NOTE | ~2016-09-29 | CR132 ---
[facility] A Service of [facility] & [facility] RADIOLOGY TEXT RESULTS PATIENT: IDALIA ORR LOCATION: SED : [birth year] UNIT #: [id number] AGE: [address]: JB VARGHESE SEX: F ORDER DR: [id number] [address] [address] [id number] MR#: [id number] Acc #: [id number] NAME: IDALIA ORR : 1970 SEX: F STUDY DATE/TIME: 09/29/2016 18:10 UNIT: SED ROOM: STUDY DESCRIPTION: CR Forearm 2 View Lt Attending Physician: (Jason) Jb Varghese Ordering Physician: Iris) Jb Varghese Primary Care Physician: No Primary Care Physician MEDICAL IMAGING REPORT This report is preliminary unless electronic signature is present. EXAM Left forearm, two views. HISTORY Arm pain after injury yesterday. FINDINGS AP and lateral views of the forearm show no evidence of fracture or destructive bone lesion. No periosteal elevation is seen. No radiodense foreign bodies are noted. Adjacent soft tissue structures are normal. IMPRESSION Normal left forearm. Dictated by... Yair Witt M.D. THIS IS AN ELECTRONICALLY VERIFIED REPORT Yair Witt M.D. at 09/30/2016 11:18 PM DEON/selina TD: 09/29/2016 20:39 JOB #: [id number] MEDICAL IMAGING REPORT Page 1 of 1
[~2016-09-29 17:35] MED LIST changes: +SUBOXONE 12 MG1 EACH
[2016-09-29] MEDS ORDERED: KEPPRA PO (17:43)
[2016-09-29] MEDS ORDERED: SUBOXONE PO (17:44)
[2016-09-29] MEDS ORDERED: XANAX PO (17:44)
[2016-09-29] MEDS ORDERED: RITALIN PO (17:45)
== END 2016-09-29 18:38 | disposition home or self-care (01) ==
LOC: SED 17:35
DX: S50.12XA Contusion of left forearm, initial encounter (principal); J44.9 Chronic obstructive pulmonary disease, unspecified; F17.210 Nicotine dependence, cigarettes, uncomplicated; Z91.041 Radiographic dye allergy status; Z88.8 Allergy status to other drugs, medicaments and biological substances; Z79.899 Other long term (current) drug therapy; W22.8XXA Striking against or struck by other objects, initial encounter; Y92.89 Other specified places as the place of occurrence of the external cause
CPT/HCPCS: 29260; 73090; 99283